=== PATIENT | male | born 1995 | race Two or more races ===

== ENCOUNTER 2017-02-26 10:52 | Emergency (ER) | payer MEDICAID ==
[2017-02-26] MEDS ORDERED: ONDANSETRON 4 MG/2ML 2 ML VIAL ONE (11:20)
[2017-02-26] MEDS ORDERED: LACTATED RINGERS 1,000 ML ONE (11:20)
[2017-02-26 11:54] LABS: ABSOLUTE NEUTROPHIL COUNT 8.3 K/mm3 (1.8-7.7); BASO # 0.1 K/mm3 (0.0-0.2); BASO % 0.4 % (0.2-1.0); EOS % 0.3 % (0.9-2.9); HEMATOCRIT 49.4 % (32.0-52.0); HEMOGLOBIN 17.1 gm/l (14.0-18.0); IMM NEUT # 0.1 K/mm3 (0-0.2); IMM NEUT% 0.4 % (0-1); LYMPH # 1.6 (1.0-4.8); LYMPH % 13.9 % (15-45); MEAN CELL VOLUME 86.7 fl (80.0-94.0); MEAN CORPUSCULAR HGB CONC 34.6 g/dl (33.0-37.0); MONO # 1.6 (0.0-0.8); MONO % 13.9 % (4-12); NEUT % 71.1 % (43-75); PLATELET COUNT 217 K/mm3 (130-400); RED CELL DISTRIBUTION WIDTH 12.6 % (11.5-14.5)
[2017-02-26 12:10] LABS: ALB/GLOB RATIO 1.1 (>1.0); CALCIUM 9.3 mg/dL (8.6-10.3)
== END 2017-02-26 13:37 | disposition home or self-care (01) ==
LOC: ED 10:52
DX: R10.13 Epigastric pain (principal); R11.0 Nausea; R19.7 Diarrhea, unspecified
CPT/HCPCS: 83690; 85025; 80053; 99283 ×2; 96374; 96361; J2405; J7120

== ENCOUNTER 2017-02-26 22:06 | Emergency (ER) | payer MEDICAID ==
[2017-02-27 00:41] LABS: STOOL FOR OCCULT BLOOD POSITIVE (NEGATIVE)
[2017-02-27] MEDS ORDERED: LACTATED RINGERS 1,000 ML ONE (01:02)
[2017-02-27 01:31] LABS: ABSOLUTE NEUTROPHIL COUNT 6.5 K/mm3 (1.8-7.7); BASO % 0.4 % (0.2-1.0); EOS # 0.1 (0.0-0.5); EOS % 0.6 % (0.9-2.9); HEMATOCRIT 46.6 % (32.0-52.0); HEMOGLOBIN 15.7 gm/l (14.0-18.0); IMM NEUT% 0.3 % (0-1); LYMPH # 2.1 (1.0-4.8); LYMPH % 20.4 % (15-45); MEAN CELL VOLUME 87.9 fl (80.0-94.0); MEAN CORPUSCULAR HEMOGLOBIN 29.6 pg (27.0-31.0); MEAN CORPUSCULAR HGB CONC 33.7 g/dl (33.0-37.0); MEAN PLATELET VOLUME 10.2 fl (7.4-10.4); MONO # 1.5 (0.0-0.8); MONO % 14.9 % (4-12); NEUT % 63.4 % (43-75); PLATELET COUNT 215 K/mm3 (130-400); RED CELL DISTRIBUTION WIDTH 12.6 % (11.5-14.5)
[2017-02-27 01:45] LABS: ALBUMIN 3.7 gm/dL (3.5-5.7); CALCIUM 9.1 mg/dL (8.6-10.3)
== END 2017-02-27 02:07 | disposition home or self-care (01) ==
LOC: ED 22:06
DX: K92.1 Melena (principal); R11.0 Nausea; R10.9 Unspecified abdominal pain; R10.13 Epigastric pain; R19.7 Diarrhea, unspecified